=== PATIENT | male | born 1980 | race Two or more races ===

== ENCOUNTER 2018-02-14 14:13 | Emergency (ER) | payer MEDICAID ==
[~2018-02-14] VITALS: Ht 180.3 cm; Wt 81.6 kg
[2018-02-14] MEDS ORDERED: TETANUS-DIPTH-ACEL PERTUSSIS 0.5ML SYRG IM ONE (16:15)
[2018-02-14] MEDS ORDERED: BACITRACIN TOP OINT 1 UD PKG TOP ONE (17:35)
[2018-02-14 17:59] VITALS: BP 136/87
== END 2018-02-14 18:12 | disposition home or self-care (01) ==
LOC: ER 14:22
DX: S62.522B Displaced fracture of distal phalanx of left thumb, initial encounter for open fracture (principal); W22.8XXA Striking against or struck by other objects, initial encounter; Y93.89 Activity, other specified; Y99.8 Other external cause status; Y92.810 Car as the place of occurrence of the external cause
CPT/HCPCS: 12042; 73130; 90471; 90715